=== PATIENT | male | born 1975 | race Caucasian/White ===

== ENCOUNTER 2020-06-10 08:03 | Emergency (ER) | payer BC ==
[~2020-06-10] VITALS: Ht 177.8 cm; Wt 88.0 kg
[2020-06-10] MEDS ORDERED: GLIPIZIDE5 MG PO (08:25)
[2020-06-10] MEDS ORDERED: SIMVASTATIN20 MG PO (08:25)
[2020-06-10] MEDS ORDERED: METFORMIN HCL500 MG PO (08:25)
[2020-06-10] MEDS ORDERED: DOXYCYCLINE HY100 MG PO (09:10)
[2020-06-11] MEDS ORDERED: HYDROCODON-ACE1 EAC8 PO (11:02)
== END 2020-06-10 09:25 | disposition home or self-care (01) ==
LOC: ED 08:03
DX: S60.222A Contusion of left hand, initial encounter (principal); W22.8XXA Striking against or struck by other objects, initial encounter; Y99.0 Civilian activity done for income or pay; E11.9 Type 2 diabetes mellitus without complications; F17.200 Nicotine dependence, unspecified, uncomplicated; Z88.0 Allergy status to penicillin; Z79.899 Other long term (current) drug therapy; Z79.84 Long term (current) use of oral hypoglycemic drugs
CPT/HCPCS: 10160; 90471; 90715; 99283-25

== ENCOUNTER 2020-06-11 09:44 | Emergency (ER) | payer OTHER, BC ==
[~2020-06-11] VITALS: Ht 177.8 cm; Wt 88.0 kg
[~2020-06-11 09:44] MED LIST: DOXYCYCLINE HY100 MG PO; GLIPIZIDE5 MG PO; METFORMIN HCL500 MG PO; SIMVASTATIN20 MG PO
--- OUTSIDE RECORDS SUMMARY | 2020-06-11 09:46 | XMS ---
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 O[facility]io has no Care Guidelines for this patient. [facility] VISIT COUNT (12 MO.) [address] [facility] TOTAL 2 NOTE: Visits indicate total known visits. ED/C VISIT TRACKING (12 MO.) 06/11/2020 09:44 [facility] [place] TYPE: Emergency COMPLAINT: - LT HAND ISSUE 06/10/2020 08:04 [facility] [place] TYPE: Emergency COMPLAINT: - L HAND INJURY INPATIENT VISIT TRACKING (12 MO.) No inpatient visits to display in this time frame [email or web address]
[2020-06-11] MEDS ORDERED: HYDROCODON-ACE1 EAC8 PO (11:02)
== END 2020-06-11 11:14 | disposition home or self-care (01) ==
LOC: ED 09:44
DX: S60.222A Contusion of left hand, initial encounter (principal); X58.XXXA Exposure to other specified factors, initial encounter; E11.9 Type 2 diabetes mellitus without complications; F17.200 Nicotine dependence, unspecified, uncomplicated; Z88.0 Allergy status to penicillin; Z79.899 Other long term (current) drug therapy; Z79.84 Long term (current) use of oral hypoglycemic drugs
CPT/HCPCS: 99283

== ENCOUNTER 2023-07-16 04:42 | Emergency (ER) | payer OTHER, BC ==
[~2023-07-16] VITALS: Ht 177.8 cm; Wt 91.0 kg
[~2023-07-16 04:42] MED LIST changes: +HYDROCODON-ACE1 EAC8 PO
[2023-07-16 05:48] VITALS: BP 143/87
== END 2023-07-16 05:49 | disposition home or self-care (01) ==
LOC: ED 04:42
DX: S91.201A Unspecified open wound of right great toe with damage to nail, initial encounter (principal); E11.9 Type 2 diabetes mellitus without complications; F17.200 Nicotine dependence, unspecified, uncomplicated; W01.0XXA Fall on same level from slipping, tripping and stumbling without subsequent striking against object, initial encounter; Y93.89 Activity, other specified; Y92.512 Supermarket, store or market as the place of occurrence of the external cause; Y99.0 Civilian activity done for income or pay; Z88.0 Allergy status to penicillin; Z79.84 Long term (current) use of oral hypoglycemic drugs; Z79.899 Other long term (current) drug therapy
CPT/HCPCS: 64450; 73630; 99283-25

== ENCOUNTER 2023-10-12 07:15 | Day surgery (SDC) | payer BC ==
[2023-10-04 09:07] VITALS: BP 129/87
[~2023-10-12] VITALS: Ht 177.8 cm; Wt 90.9 kg
[~2023-10-12 07:15] MED LIST changes: +ACTOS15 MG PO; +CEFAZOLIN SODIUM 2 GM/20 ML SYR IV SCH; +CINNAMON500 MG PO; +DEXAMETHASONE SOD PHOS 4 MG/ML VIAL ONE; +FAMOTIDINE 20 MG/ 2 ML VIAL ONE; +HEParin SOD (PORCINE) 5,000 UNIT/0.5 ML SYR SUB-Q SCH; +IBLOOD GLUCOSE TEST STRIP 1 EA TEST VI PRN; +KETOROLAC TROMETHAMINE 30 MG/ML VIAL ONE; +LACTATED RINGER'S 1,000 ML IV ONE; +LACTATED RINGER'S 1,000 ML IV SCH; +LIDOCAINE HCL 1% 5 ML SDV INJ ONE; +LIDOCAINE HCL 4% 5 ML AMP ONE; +METOCLOPRAMIDE HCL 10 MG/2 ML SDV ONE; +MIDAZOLAM HCL 2 MG/2 ML VIAL ONE; +OMEGA 3 1,0001 EACH PO; +OSTERA TABLET1 EACH PO; +ROCURONIUM BROMIDE 50 MG/5 ML SYR ONE; +SUCCINYLCHOLINE IN 0.9% NACL 200 MG/10 ML SYRINGE ONE; +SUGAMMADEX SODIUM 200 MG/2 ML ML ONE; +fentaNYL citrate 100 MCG/2 ML VIAL ONE; +ondansetron HCL 4 MG/2 ML VIAL ONE; +propofoL 200 MG/20 ML VIAL ONE
--- NOTE | 2023-10-12 07:26 | NUR ---
VISITED WITH PARENTS DURING SPIRITUAL CARE ROUNDS, STRONG RELATIONAL RESOURCES EXHIBITED. DENIED IMMEDIAT NEEDS. VOCATIONAL PSYCHOLOGIST PROVIDED SUPPORTIVE PRESENCE, HOSPITALITY, PRAYER.
[2023-10-12 07:36] VITALS: BP 137/91
--- NOTE | 2023-10-12 08:00 | NUR ---
OCTAVIO 0715: PT ARRIVES TO AMBULATORY ACCOMPANIED BY DAD AND STEP MOM. HE IS INSTRUCTED ON HOW TO WIPE DOWN AND TO OPEN HIS CURTAIN WHEN READY. PT AND PARENTS ARE GIVEN AN ESTIMATED TIME FRAME ON HOW ON LONG THEY WILL BE HERE TODAY. OCTAVIO 0755: PT IS EDUCATED TO LET THIS RN KNOW IF HE WOULD LIKE ANY ADJUSTMENTS MADE TO THE BED OR A WARM BLANKET. HE IS EDUCATED THAT HE CAN GET UP TO USE THE BATHROOM IF HE NEEDS, HE JUST HAS TO TAKE HIS IV POLE WITH HIM. HE IS ORIENTED TO HIS CALL LIGHT.
[2023-10-12] MEDS ORDERED: NALOXONE HCL 0.4 MG SYR IV PRN ×2 (09:00→11:30)
[2023-10-12] MEDS ORDERED: METOCLOPRAMIDE HCL 10 MG/2 ML SDV IV PRN (09:00)
[2023-10-12] MEDS ORDERED: ondansetron HCL 4 MG/2 ML VIAL IV PRN ×2 (09:00→11:30)
[2023-10-12] MEDS ORDERED: fentaNYL citrate 50 MCG/ML SDV IV PRN (09:00)
[2023-10-12] MEDS ORDERED: droPERidol 5 MG/2 ML VIAL IV PRN (09:00)
[2023-10-12] MEDS ORDERED: IBLOOD GLUCOSE TEST STRIP 1 EA TEST VI PRN (09:00)
[2023-10-12] MEDS ORDERED: PROCHLORPERAZINE EDISYLATE 10 MG/2 ML VIAL IV PRN (09:00)
[2023-10-12] MEDS ORDERED: MORPHINE SULFATE 10 MG/ML VIAL IV PRN (09:00)
[2023-10-12] MEDS ORDERED: ePHEDrine sulfate 50 MG/ML AMP ONE (11:07)
--- NOTE | 2023-10-12 11:22 | NUR ---
10/12/23 1122 Sandi Rivera 1115- PT ARRIVES TO PACU NONAROUSABLE TO STIMULI WITH AN OPA IN PLACE. PT ALSO NEEDING A JAW THRUST TO MAINTAIN PATENT AIRWAY. RESP EVEN AND UNLABORED. OXYGEN SAT HIGH 90'S ON 10L VIA MASK. 1119- ATTEMPTED TO REPOSITION THE PT TO MAINTAIN A PATENT AIRWAY. PT NOW NEEDING A CHIN LIFT TO MAINTAIN PATENT AIRWAY.
[2023-10-12] MEDS ORDERED: HYDROmorphone HCL 1 MG/ML SYR IV PRN (11:30)
[2023-10-12] MEDS ORDERED: HYDROCODONE/ACETA 5/325 TAB PO PRN (11:30)
[2023-10-12] MEDS ORDERED: ACETAMINOPHEN 1,000 MG/100 ML VIAL IV ONE (12:00)
[2023-10-12 12:11] VITALS: BP 135/91
--- NOTE | 2023-10-12 12:20 | NUR ---
1210-PT BACK TO ROOM FROM PACU ON 2L VIA NE. RECEIVED REPORT FROM HOLLEY DIETZ. PT IS AWAKE. RESP EVEN AND UNLABORED. RATES PAIN 5/10, DENIES NAUSEA. DRESSING IS CLEAN, DRY, AND INTACT. PT SIPPING ON WATER. PROVIDED PT WITH PUDDING. CALL LIGHT WITHIN REACH.
--- NOTE | 2023-10-12 12:23 | NUR ---
1218-PAIN MEDICATION GIVEN PER EMAR. O2 TITRATED OFF. O2 SATS IN THE MID 95-97% ON RA. NO OTHER NEEDS AT THIS TIME. CALL LIGHT WITHIN REACH.
[2023-10-12 13:10] VITALS: BP 152/92
--- NOTE | 2023-10-12 14:48 | NUR ---
LE 1245 PATIENT AMBULATED TO THE RESTROOM. VOIDED CLEAR AND YELLOW URINE 300 MLS. LE 1310 PATIENT HAS MET DISCHARGE CRITERIA. PATIENT DRESSED SELF AND TOLERATED IT WELL. PATIENT GIVEN DISCHARGE INSTRUCTIONS NO QUESTIONS. PATIENT WHEELED OUT OF FACILITY. NO FUTHER NEEDS.
--- NOTE | 2023-10-13 07:20 | OR ---
[facility] [address], [place] [address] Signed DATE OF OPERATION: 10/12/2023 SURGEON: Conner Armas MD PREOPERATIVE DIAGNOSIS: Incarcerated recurrent umbilical and epigastric hernias. POSTOPERATIVE DIAGNOSIS: Incarcerated recurrent umbilical and epigastric hernias (3 x 4 cm). PROCEDURE: Primary umbilical and epigastric herniorrhaphy with intra-abdominal round, 8 cm, Ventralex mesh. ESTIMATED BLOOD LOSS: None. INDICATIONS: Ramses is a 48-year-old gentleman, who came to me in 2009 for a laparoscopic cholecystectomy. At that time, he had a standard umbilical hernia measuring 10 mm and a small 5 mm epigastric hernia. We simply placed a trocar through this area and closed it primarily with a running Prolene suture in a transverse fashion at the end of that case. 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 He has simply torn that apart at this point in time. He has some tender incarcerated tissue there, but it is not affecting his GI function. He had been to his primary care provider. He was asked to see me with respect to the above. He said now that he is more senior at work, he does not have to do any serious heavy pushing, pulling, or lifting. In the office, I gave him our brochure on hernias. We looked at it page by page. I explained to him the concept of the umbilical and epigastric hernia. He simply has torn that apart. He is going to need that repaired with mesh. This would be a day surgery and he will be going home. He will be able to return to work in about a week under light duty status. He will need a good couple of months to heal than in before he does any lifting over about 20 pounds. There is risk to the surgery including, but not limited to bleeding, infection, scarring, change in contour of the skin as well as recurrent hernias, chronic pain, and infection of mesh requiring removal. He had expressed understanding and wished to proceed. PROCEDURE IN DETAIL: I met with Ramses and his family in our preop area. We all agreed on his hernia site and marked that appropriately. After this, Ramses was taken into the operating room and Electronically Signed By: CONNER ARMAS MD 10/13/23 0720 PATIENT NAME: RAMSES AGUIRRE OPERATIVE REPORT DATE OF : 79 REPORT #: [id number] PHYSICIAN: CONNER ARMAS MD PCP: OLGA HUYNH PAC REPORT IS CONFIDENTIAL AND NOT TO BE RELEASED WITHOUT AUTHORIZATION [facility] [address] [place] [id number] Signed placed in the supine position under general endotracheal tube anesthesia. He was given preoperative antibiotics along with subcutaneous heparin. SCDs were utilized. He was prepped and draped in the usual sterile fashion. Even then, we could not reduce his hernia. We utilized his previous supraumbilical transverse incision and we opened that up sharply with a knife. We went down and around the multilobulated hernia and hernia sac with the help of the cautery. The hernia sac was slowly excised around the with the help of the cautery. He had omentum in the hernia sac, it was easily reduced into the abdomen. We also the hernia sac from his umbilical skin. The hernia sac was passed off the field. The fascial defect was about 3 x 4 cm. We could easily see inside the abdomen and we elevated the abdominal wall and there were no adhesions at all whatsoever inside the abdomen. The tissue in that area was a little thin, I think maybe from some mild diastasis. We chose our 8 cm round Ventralex mesh and we placed it inside the abdomen, brought up flushed against the posterior abdominal wall. The falciform ligament was not in our way. We closed the fascial defect transversely with interrupted [id number] #1 Prolene sutures. Several passes of the suture went through the tab on the mesh to hold it in place. After this, the wound was injected with local anesthetic. The wound was irrigated and suctioned out until clear. We then brought the umbilical skin down to the midline fascia with an interrupted 2-0 PDS suture. The subcutaneous fat was gently reapposed with interrupted 3-0 Monocryl sutures. The dermis was reapproximated with multiple interrupted 3-0 subcuticular Monocryl sutures. The skin edges were reapproximated with a running 5-0 fast absorbing plain gut suture. Dry gauze and tape was then applied. Ramses was awakened from his anesthesia, extubated in the OR, and taken to recovery room in stable condition. Conner Armas MD ALB/MODL /[id number] cc: MD Olga Snider PA-C Copies: CONNER ARMAS MD Electronically Signed By: CONNER ARMAS MD 10/13/23 0720 PATIENT NAME: RAMSES AGUIRRE OPERATIVE REPORT DATE OF : 79 REPORT #: [id number] PHYSICIAN: CONNER ARMAS MD PCP: OLGA HUYNH REPORT IS CONFIDENTIAL AND NOT TO BE RELEASED WITHOUT AUTHORIZATION [address] [address] Signed OLGA HUYNH ~ Electronically Signed By: CONNER ARMAS MD 10/13/23 0720 PATIENT NAME: RAMSES AGUIRRE OPERATIVE REPORT DATE OF : 79 REPORT #: [id number] PHYSICIAN: CONNER ARMAS MD PCP: OLGA HUYNH REPORT IS CONFIDENTIAL AND NOT TO BE RELEASED WITHOUT AUTHORIZATION
== END 2023-10-12 13:10 | disposition home or self-care (01) ==
LOC: OPS 07:15 → DS 07:15 → OPS 09:45 → DS 09:45 → OPS 13:10
PROVIDERS: ATTEND Colon & Rectal Surgery
PROC: 0WUF0JZ Supplement Abdominal Wall with Synthetic Substitute, Open Approach (ICD-10-PCS; principal; 2023-10-12 09:45)
DX: K42.0 Umbilical hernia with obstruction, without gangrene (principal); E11.9 Type 2 diabetes mellitus without complications; E78.5 Hyperlipidemia, unspecified; F17.210 Nicotine dependence, cigarettes, uncomplicated; Z79.84 Long term (current) use of oral hypoglycemic drugs; Z79.899 Other long term (current) drug therapy; Z88.0 Allergy status to penicillin
CPT/HCPCS: 00750; C1781; J0131; J0330; J0690; J1100; J1644; J1885; J2250; J2405; J2704; J2765; J3010; J3490; J7121